=== PATIENT | male | born 1965 | race Caucasian/White ===

== ENCOUNTER 2019-07-12 17:46 | Emergency (ER) | payer MEDICARE, OTHER ==
[~2019-07-12] VITALS: Ht 177.8 cm; Wt 83.9 kg
--- NOTE | 2019-07-12 17:58 | NUR ---
PT BIB SELF C/O COUGH AND CONGESTION X 3 DAYS, PT IS AAOX4, HARD OF HEARING, NOT IN RESPIRATORY DISTRESS, HOOKED TO MONITOR, KEPT RESTED AND COMFORTABLE, WILL CONTINUE TO MONITOR.
--- NOTE | 2019-07-12 18:09 | NUR ---
AT BEDSIDE FOR EVAL.
--- NOTE | 2019-07-12 18:16 | NUR ---
CALLED RT FOR TREATMENT
[2019-07-12] MEDS ORDERED: IPRATROPIUM NEB FS 0.5 MG/2.5 ML AMPUL.NEB ONE (18:22)
[2019-07-12] MEDS ORDERED: ALBUTEROL FS 2.5 MG/3 ML VIAL.NEB ONE (18:22)
--- NOTE | 2019-07-12 18:25 | NUR ---
IV LINE ESTABLISHED, BLOOD DRAWN AND SENT TO LAB.
[2019-07-12] MEDS ORDERED: ALBUTEROL FS 2.5 MG/3 ML VIAL.NEB NEB ONE (18:30)
[2019-07-12] MEDS ORDERED: IPRATROPIUM NEB FS 0.5 MG/2.5 ML AMPUL.NEB NEB ONE (18:30)
[2019-07-12 18:36] LABS: BASOPHILS # (AUTO) 0.1 /CMM (0.0-0.2); BASOPHILS % (AUTO) 1.6 % (0.0-2.0); EOSINOPHILS % (AUTO) 4.9 % (0.0-6.0); HEMATOCRIT 43 % (39-51); HEMOGLOBIN 14.3 g/dL (13.5-17.5); LYMPHOCYTES # (AUTO) 0.5 /CMM (0.8-4.8); LYMPHOCYTES % (AUTO) 5.7 % (20.0-44.0); MEAN CORPUSCULAR HGB CONC 33 g/dl (31.0-36.0); MEAN CORPUSCULAR VOLUME 88 fL (80-96); MONOCYTES # (AUTO) 0.9 /CMM (0.1-1.30); MONOCYTES % (AUTO) 9.8 % (2.0-12.0); NEUTROPHILS # (AUTO) 7.2 /CMM (1.8-8.9); PLATELET COUNT (AUTO) 362 /CMM (150-450); RED BLOOD CELL COUNT(AUTO) 4.93 MIL/uL (4.5-6.0); WHITE BLOOD COUNT (AUTO) 9.2 K/uL (4.3-11.0)
--- NOTE | 2019-07-12 18:40 | NUR ---
PURCHASING/RECEIVING AT BEDSIDE FOR XRAY.
[2019-07-12 18:48] LABS: CALCIUM, SERUM 8.9 mg/dL (8.5-10.1); POTASSIUM 3.7 mmol/L (3.5-5.1)
--- NOTE | 2019-07-12 19:14 | NUR ---
REPORT GIVEN TO [facility] FOR [facility].
--- NOTE | 2019-07-12 20:54 | NUR ---
IV removed. Catheter intact and site benign. Pressure and 4x4 applied to site. No bleeding noted. Patient discharged to home in stable condition. Written and verbal after care instructions given. Patient verbalizes understanding of instruction.
[2019-07-12 20:55] VITALS: BP 127/72
== END 2019-07-12 20:55 | disposition home or self-care (01) ==
LOC: ER 17:46
DX: J20.9 Acute bronchitis, unspecified (principal); F12.10 Cannabis abuse, uncomplicated; Z90.89 Acquired absence of other organs
CPT/HCPCS: 36415; 71045-TC; 80048-TC; 85025-TC; 87040-TC

== ENCOUNTER 2019-07-14 21:19 | Emergency (ER) | payer OTHER ==
[~2019-07-14] VITALS: Ht 188 cm; Wt 97.1 kg
--- NOTE | 2019-07-14 22:03 | NUR ---
PATIENT CAME TOER BED 4 C/O RIGHT THROAT PAIN WHEN SWALLOWING. PT STATES HE WAS PREVIOUSLY IN HERE FOR BRONCHITIS. AAOX4. NO SOB. BREATHING EVENLY AND UNLABORED ON ROOM AIR. CONNECTED TO MONITOR.
[2019-07-14] MEDS ORDERED: ALBUTEROL FS 2.5 MG/3 ML VIAL.NEB ONE ×2 (23:18→23:28)
[2019-07-14] MEDS ORDERED: IPRATROPIUM NEB FS 0.5 MG/2.5 ML AMPUL.NEB ONE (23:18)
[2019-07-14] MEDS ORDERED: ALBUTEROL FS 2.5 MG/3 ML VIAL.NEB CONTNEB ONE (23:30)
[2019-07-14] MEDS ORDERED: IPRATROPIUM NEB FS 0.5 MG/2.5 ML AMPUL.NEB NEB ONE (23:30)
[2019-07-14 23:45] VITALS: BP 128/77
== END 2019-07-15 00:20 | disposition home or self-care (01) ==
LOC: ER 21:19
DX: J20.9 Acute bronchitis, unspecified (principal); J02.8 Acute pharyngitis due to other specified organisms; H91.90 Unspecified hearing loss, unspecified ear; F12.90 Cannabis use, unspecified, uncomplicated; G62.9 Polyneuropathy, unspecified; Z90.89 Acquired absence of other organs

== ENCOUNTER 2021-08-22 23:08 | Inpatient (IN) | payer OTHER ==
[~2021-08-22] VITALS: Ht 188 cm; Wt 99.8 kg
--- NOTE | 2021-08-22 23:15 | NUR ---
PATIENT BIBSELF C/O SYNCOPAL EPISODE AROUND 9PM, WOKE UP WITH PERIOD OF INCONTINENCE. PATIENT IS A/O X 4, RR EVEN AND UNLABORED, NO SOB NOTED. PATIENT CONNECTED TO CARDIAC AND POX MONITOR. PATIENT DEAF, CAN READ LIPS.
[2021-08-23 00:23] LABS: BASOPHILS # (AUTO) 0.1 K/uL (0.0-0.2); HEMATOCRIT 43 % (39-51); HEMOGLOBIN 14.2 g/dL (13.5-17.5); LYMPHOCYTES % (AUTO) 9.7 % (20.0-44.0); MEAN CORPUSCULAR HGB CONC 33 g/dl (31.0-36.0); MEAN CORPUSCULAR VOLUME 88 fL (80-96); MONOCYTES # (AUTO) 0.8 K/uL (0.1-1.30); MONOCYTES % (AUTO) 8.5 % (2.0-12.0); NEUTROPHILS # (AUTO) 7.7 K/uL (1.8-8.9); NEUTROPHILS % (AUTO) 77.8 % (43.0-81.0); PLATELET COUNT (AUTO) 400 K/uL (150-450); RED BLOOD CELL COUNT(AUTO) 4.87 MIL/uL (4.5-6.0); WHITE BLOOD COUNT (AUTO) 9.9 K/uL (4.3-11.0)
--- NOTE | 2021-08-23 00:31 | NUR ---
RETURN FROM CT
[2021-08-23 00:59] LABS: ALANINE AMINOTRANSFERASE 27 U/L (12-78); ALBUMIN 3.3 g/dL (3.4-5.0); ALKALINE PHOSPHATASE 75 U/L (46-116); ASPARTATE AMINOTRANSFERASE 17 U/L (15-37); BILIRUBIN,DIRECT 0.1 mg/dL (0.0-0.2); BILIRUBIN,TOTAL 0.3 mg/dL (0.2-1.0); CARBON DIOXIDE 24 mmol/L (21-32); CHLORIDE 102 mmol/L (98-107); CREATININE 0.9 mg/dL (0.6-1.3); GLUCOSE 101 mg/dL (74-106); POTASSIUM 4.4 mmol/L (3.5-5.1); SODIUM SERUM 134 mmol/L (136-145); TOTAL PROTEIN, SERUM 8.1 g/dL (6.4-8.2); UREA NITROGEN, BLOOD 16 mg/dL (7-18)
[2021-08-23] MEDS ORDERED: CEFTRIAXONE 1GM BAG (ER ONLY) 1 GM/50 ML PIGGYBACK IV ONE (01:30)
[2021-08-23] MEDS ORDERED: AZITHROMYCIN 500 MG in IV D5W 250 ML IV ONE (01:30)
--- NOTE | 2021-08-23 01:36 | NUR ---
URINE COLLECTED SENT TO LAB
[2021-08-23 01:39] LABS: CALCIUM, SERUM 9.1 mg/dL (8.5-10.1)
[2021-08-23] MEDS ORDERED: AZITHROMYCIN 500 MG VIAL ONE (01:43)
[2021-08-23] MEDS ORDERED: CEFTRIAXONE 1GM BAG (ER ONLY) 50 ML IV ONE (01:43)
[2021-08-23] MEDS ORDERED: ACETAMINOPHEN 325 MG TABLET PO PRN (03:00)
[2021-08-23] MEDS ORDERED: MAG HYDROX/AL HYDROX/SIMETH 30 ML UDC PO PRN (03:00)
[2021-08-23] MEDS ORDERED: ONDANSETRON HCL/PF 4 MG/2 ML VIAL IVP PRN (03:00)
[2021-08-23] MEDS ORDERED: Z GUARD REMEDY 4 OZ OINT TP PRN (03:00)
[2021-08-23] MEDS ORDERED: ZOLPIDEM TARTRATE 5 MG TABLET PO PRN (03:00)
--- NOTE | 2021-08-23 04:50 | NUR ---
US AT BEDSIDE
[2021-08-23] MEDS ORDERED: FOLI0.8C PO (08:09)
[2021-08-23] MEDS ORDERED: METH2.5T14 MT (08:09)
--- NOTE | 2021-08-23 09:55 | NUR ---
REPORT GIVEN TO [facility] 304 BED 1. PATIENT AWAITING FOR ADMISSION.
--- NOTE | 2021-08-23 10:15 | NUR ---
PATIENT ADMITTED TO [facility] 304 BED 1
[2021-08-23] MEDS ORDERED: MISO200T PO (10:25)
--- NOTE | 2021-08-23 10:30 | NUR ---
[facility] OPENING NOTE RECEIVED PATIENT FROM ER TRANSPORTED ON A GURNEY ACCOMPANIED BY 2 NURSES. PATIENT ABLE TO TRANSFER TO BED FROM [facility] BY HIMSELF WITHOUT ANY PROBLEM. COMFORT MEASURES PROVIDED. PATIENT IS ALERT AND ORIENTED X 4, PATIENT WITH IV ACCESS ON LEFT SHIFT ON SALINE LOCK, PATENT AND INTACT. PATIENT ON ROOM AIR, TOLERATED WELL. SAFETY MEASURES ENSURED WITH BED ON LOW, LOCKED POSITION, SIDERAILS RAISED. MS AWARE OF ADMISSION. WILL CONTINUE TO MONITOR PATIENT.
--- NOTE | 2021-08-23 14:00 | NUR ---
SHORT ORDER COOK NOTE SEEN BY DR. PAULSON. WILL CONTINUE TO MONITOR
--- NOTE | 2021-08-23 15:32 | NUR ---
COMMERCIAL SERVICE TECHNICIAN NOTE SEEN BY DR. RODRIGES WITH [employer] [facility] AT BEDSIDE. WILL CONTINUE TO MONITOR PATIENT.
[2021-08-23 15:43] VITALS: BP 127/82
--- NOTE | 2021-08-23 16:00 | NUR ---
CHEF NOTE PATIENT DISCHARGED ORDERED. HEALTH TEACHINGS DONE AND VERBALIZED UNDERSTANDING. IN STABLE CONDITION. ENDORSED ACCORDINGLY.
== END 2021-08-23 16:55 | disposition home or self-care (01) | DRG 74 ==
LOC: ER 23:12 → TRANSITION 08-23 03:48 → TELE 08-23 10:01
PROVIDERS: ADMIT Nurse Practitioner Acute Care; ATTEND Nurse Practitioner Acute Care
DX: G90.8 Other disorders of autonomic nervous system (principal); E87.1 Hypo-osmolality and hyponatremia; G62.9 Polyneuropathy, unspecified; Z20.822 Contact with and (suspected) exposure to COVID-19; M06.9 Rheumatoid arthritis, unspecified; Z90.49 Acquired absence of other specified parts of digestive tract; H91.90 Unspecified hearing loss, unspecified ear; Z79.899 Other long term (current) drug therapy; I10 Essential (primary) hypertension; R32 Unspecified urinary incontinence
CPT/HCPCS: 36415; 70450-TC; 71045-TC; 80048-TC; 80076-TC; 84484-TC; 85025-TC; 85730-TC; 93307-TC; 93880-TC; C9803; G0378; G0480; J0456; J0696; J2405; J7060

== ENCOUNTER 2022-10-20 17:44 | Emergency (ER) | payer OTHER ==
[~2022-10-20] VITALS: Ht 188 cm; Wt 102.1 kg
[~2022-10-20 17:44] MED LIST: FOLI0.8C PO; METH2.5T14 MT; MISO200T PO
--- NOTE | 2022-10-20 18:20 | NUR ---
[id number] FOR RIGHT RIB AND ELBOW PAIN S/P MECHANICAL FALL. NO KO. RATES PAIN 10/08. WILL CONTINUE TO MONITOR THE PATIENT.
[2022-10-20] MEDS ORDERED: ACETAMINOPHEN ES 500 MG TABLET ONE (18:39)
[2022-10-20] MEDS: ACETAMINOPHEN 325 MG TABLET PO ONE (19:09)
[2022-10-20] MEDS: LIDOCAINE 5% (PATCH) 1 EA PATCH TP SCH (19:09)
[2022-10-20] MEDS ORDERED: HYDR-3980 PO ×2 (20:20→22:14)
[2022-10-20] MEDS ORDERED: LIDO30AD10 TP ×2 (20:20→22:14)
--- NOTE | 2022-10-20 21:00 | NUR ---
RT AT BEDSIDE FOR INCENTIVE SPIROMETER TEACHING
[2022-10-20 21:14] VITALS: BP 143/96
--- NOTE | 2022-10-20 21:14 | NUR ---
Patient discharged to home in stable condition. Written and verbal after care instructions given. Patient verbalizes understanding of instruction.
== END 2022-10-20 21:14 | disposition home or self-care (01) ==
LOC: ER 17:48
DX: S22.41XA Multiple fractures of ribs, right side, initial encounter for closed fracture (principal); M06.9 Rheumatoid arthritis, unspecified; Z90.89 Acquired absence of other organs; W01.0XXA Fall on same level from slipping, tripping and stumbling without subsequent striking against object, initial encounter; Y93.89 Activity, other specified; Y92.89 Other specified places as the place of occurrence of the external cause; Y99.8 Other external cause status
CPT/HCPCS: 71100-TC; 73080-TC

== ENCOUNTER 2022-10-21 00:29 | Emergency (ER) | payer OTHER ==
[~2022-10-21] VITALS: Ht 182.9 cm; Wt 77.1 kg
[~2022-10-21 00:29] MED LIST changes: +HYDR-3980 PO; +LIDO30AD10 TP
[2022-10-21 00:53] VITALS: BP 135/76
[2022-10-21] MEDS ORDERED: HYDROCODONE/APAP 10/325MG TABLET ONE (00:57)
[2022-10-21] MEDS ORDERED: HYDROCODONE/APAP 5/325MG TABLET PO ONE (01:00)
--- NOTE | 2022-10-21 01:00 | NUR ---
Patient discharged to home in stable condition. Written and verbal after care instructions given. Patient verbalizes understanding of instruction.
[2022-10-23] MEDS ORDERED: HYDROCODONE/APAP 10/325MG TABLET PO ONE (13:30)
== END 2022-10-21 01:00 | disposition home or self-care (01) ==
LOC: ER 00:31
DX: S22.49XA Multiple fractures of ribs, unspecified side, initial encounter for closed fracture (principal); Z90.49 Acquired absence of other specified parts of digestive tract; Z98.890 Other specified postprocedural states; Z79.899 Other long term (current) drug therapy; W19.XXXA Unspecified fall, initial encounter; Y93.89 Activity, other specified; Y92.89 Other specified places as the place of occurrence of the external cause; Y99.8 Other external cause status